=== PATIENT | male | born 1985 | race Caucasian/White ===

== ENCOUNTER 2020-02-02 10:32 | Emergency (ER) | payer OTHER, SELFPAY ==
[~2020-02-02] VITALS: Ht 180.3 cm; Wt 97.5 kg
[2020-02-02 10:36] VITALS: Ht 180.3 cm; Wt 97.5 kg
[2020-02-02] MEDS ORDERED: ODEFSEY TABLET1 EACH (10:58)
[2020-02-02] MEDS ORDERED: ZESTRIL10 MG PO (10:59)
[2020-02-02 12:16] VITALS: BP 124/88
== END 2020-02-02 12:23 | disposition home or self-care (01) ==
LOC: ED 10:32
DX: U07.1 COVID-19 (principal); I10 Essential (primary) hypertension; Z91.013 Allergy to seafood
CPT/HCPCS: Q0092; U0003-CS

== ENCOUNTER 2020-02-14 16:09 | Emergency (ER) | payer OTHER, SELFPAY ==
[~2020-02-14] VITALS: Ht 180.3 cm; Wt 97.5 kg
[~2020-02-14 16:09] MED LIST: ODEFSEY TABLET1 EACH; ZESTRIL10 MG PO
[2020-02-14 16:11] VITALS: BP 132/92; Ht 180.3 cm; Wt 97.5 kg
== END 2020-02-14 17:52 | disposition home or self-care (01) ==
LOC: ED 16:09
DX: R07.89 Other chest pain (principal)